=== PATIENT | male | born 1930 | race Caucasian/White ===

== ENCOUNTER → 2017-08-06 | Outpatient (CLI) | payer OTHER ==
[~2017-08-06] MED LIST: ALLOPURINOL 30300 M3 PO; ASPIRIN81 M2 PO; BISOPROLOL FUM2.5 MG PO; CIPRO250 M1 PO; DIOVAN320 MG PO; FLAGYL500 MG PO; IMDUR 60 MG TAB60 M1 PO; MEDROLDOSEPACK PO; PLAVIX 75 MG TA75 M1 PO; PRAVASTATIN SOD80 MG PO; PREDNISONE 10 M10 MG PO
== END ==
LOC: RAD 13:38
DX: M47.896 Other spondylosis, lumbar region (principal); M16.12 Unilateral primary osteoarthritis, left hip; M17.10 Unilateral primary osteoarthritis, unspecified knee

== ENCOUNTER 2019-11-07 10:56 | Emergency (ER) | payer OTHER ==
[~2019-11-07] VITALS: Ht 167.6 cm; Wt 88.5 kg
[2019-11-07] MEDS ORDERED: PLAQUENIL200 MG PO (11:11)
[2019-11-07] MEDS ORDERED: NORVASC 2.5 MG2.5 M1 PO (11:11)
[2019-11-07] MEDS ORDERED: COZAAR 25 MG TA25 M1 PO (11:11)
[2019-11-07] MEDS ORDERED: PREDNISONE 10 M10 MG PO (12:27)
[2019-11-07] MEDS ORDERED: FLEXERIL PO (12:27)
[2019-11-07 12:47] VITALS: BP 184/78
== END 2019-11-07 12:56 | disposition home or self-care (01) ==
LOC: ER 10:56
DX: M54.16 Radiculopathy, lumbar region (principal); M25.552 Pain in left hip; I10 Essential (primary) hypertension; E78.00 Pure hypercholesterolemia, unspecified; M19.90 Unspecified osteoarthritis, unspecified site; Z90.49 Acquired absence of other specified parts of digestive tract; Z98.890 Other specified postprocedural states; Z87.891 Personal history of nicotine dependence

== ENCOUNTER → 2020-01-12 | Outpatient (CLI) | payer OTHER ==
[~2020-01-12] MED LIST changes: +COZAAR 25 MG TA25 M1 PO; +FLEXERIL PO; +NORVASC 2.5 MG2.5 M1 PO; +PLAQUENIL200 MG PO
== END ==
LOC: SJCVCIMAG 09:18
DX: I25.119 Atherosclerotic heart disease of native coronary artery with unspecified angina pectoris (principal); I10 Essential (primary) hypertension; E78.5 Hyperlipidemia, unspecified; I65.23 Occlusion and stenosis of bilateral carotid arteries; M35.3 Polymyalgia rheumatica

== ENCOUNTER → 2020-07-12 | Outpatient (CLI) | payer OTHER | LOC: SJCVCIMAG 08:41 | PROVIDERS: ATTEND Internal Medicine | DX: I70.203 Unspecified atherosclerosis of native arteries of extremities, bilateral legs (principal); I65.23 Occlusion and stenosis of bilateral carotid arteries; I44.4 Left anterior fascicular block; R94.31 Abnormal electrocardiogram [ECG] [EKG]; I25.119 Atherosclerotic heart disease of native coronary artery with unspecified angina pectoris; I10 Essential (primary) hypertension; E78.5 Hyperlipidemia, unspecified; M35.3 Polymyalgia rheumatica; E78.00 Pure hypercholesterolemia, unspecified; F10.220 Alcohol dependence with intoxication, uncomplicated; Z79.899 Other long term (current) drug therapy; Z95.820 Peripheral vascular angioplasty status with implants and grafts; Z82.49 Family history of ischemic heart disease and other diseases of the circulatory system; Z87.891 Personal history of nicotine dependence ==

== ENCOUNTER → 2021-01-15 | Outpatient (CLI) | payer OTHER | LOC: SJCVCIMAG 08:15 | PROVIDERS: ATTEND Nuclear Medicine Nuclear Cardiology | DX: I70.203 Unspecified atherosclerosis of native arteries of extremities, bilateral legs (principal); R94.31 Abnormal electrocardiogram [ECG] [EKG]; I44.4 Left anterior fascicular block; I25.119 Atherosclerotic heart disease of native coronary artery with unspecified angina pectoris; I10 Essential (primary) hypertension; E78.5 Hyperlipidemia, unspecified; I65.23 Occlusion and stenosis of bilateral carotid arteries; M35.3 Polymyalgia rheumatica; E78.00 Pure hypercholesterolemia, unspecified; Z95.828 Presence of other vascular implants and grafts; Z90.49 Acquired absence of other specified parts of digestive tract; Z98.890 Other specified postprocedural states; Z79.899 Other long term (current) drug therapy; Z87.891 Personal history of nicotine dependence ==

== ENCOUNTER 2021-05-22 12:18 | Emergency (ER) | payer OTHER ==
[~2021-05-22] VITALS: Ht 170.2 cm; Wt 90.7 kg
--- NOTE | ~2021-05-22 | EMS ---
[address] [address] EMS Patient Care Report Name: GENESIS HO Room #: REG KEISHA Dalton#: [id number] Admission: 05/22/21 Attend Phys: Discharge: Date of : 34 Report #: [id number] THIS REPORT FOR: //name// Report Transmitted: 05/22/2021 14:01 EMS Care Summary [facility] MED-ACT Incident [id number] @ 05/22/2021 11:35 Incident Location [address] [place] [address] Patient GENESIS HO Male, 89 Years 1930 Patient Address [address] [place] [address] Patient History Dementia,Hypertension (HTN),Cardiac - Stent,Gout, Patient Allergies No known allergies, Patient Medications Allopurinol, Amlodipine, Losartan, Plavix, Atenolol, Donepezil, Chief Complaint weakness Disposition Transported No Lights/[place] Reason Chest Pain (Non-Traumatic) Transported To [facility] Narrative Genesis reports feeling abnormal all morning. He struggles to expand on that but does agree that he is weak. He had a brief episode of an odd feeling in his chest that he could not describe. He denies any sensation to his chest at this time. He denies SOB, sweating, nausea, diarrhea, fever, cough, or urine [address] [address] EMS Patient Care Report Name: GENESIS HO Room #: REG [facility]#: [id number] Admission: 05/22/21 Attend Phys: Discharge: Date of : 34 Report #: [id number] changes. He has not felt any palpitations and has never been told that he had an irregular heart rhythm. Upon our arrival he is sitting in a chair, happy and in NAD. He stood and walked to the cot in front of the home without help or change. He was comfortable en-route. Sheet pull to ED bed with report to RN. Initial Vitals @11:51P: 43,BP: 222/102,SpO2: 98, @11:50P: 67,SpO2: 97,KS Suspected: false @11:49P: 48,SpO2: 98, @12:12P: 52,SpO2: 95, @12:11P: 46,SpO2: 96, @11:55P: 43,SpO2: 97, @11:57P: 49,SpO2: 97, @11:58P: 47, @12:12P: 43,SpO2: 97, @11:48P: 57,R: 18,BP: 220/87,Pain: 0/10,GCS: 15,SpO2: 97,Revised Trauma: 12, @11:54P: 60,R: 18,Pain: 0/10,GCS: 15,Temp: 97.3F,Glucose: 93, Assessments @11:45MENTAL:Person Oriented,Time Oriented,Place Oriented,Event Oriented,SKIN:HEENT:LUNG SOUNDS:ABDOMEN:PELVIS//GI:EXTREMITIES:Left Leg: Edema,Right Leg: Edema,PULSE:NEURO: Impression Cardiac arrhythmia/dysrhythmia Procedures @PTAAspirin - 324 Milligrams (mg) - OralResponse: Unchanged@11:50Surgical Mask on PatientResponse: Unchanged@12:04Saline Lock 10cc (18 ga) Site: Radial-LeftResponse: UnchangedSucceeded@11:5012-Lead ECG@12:1212-Lead ECG@11:5812-Lead ECG 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,Aspirin - 324 Milligrams (mg) - Oral,Response: Unchanged 11:32,Call Received 11:32,Psap Call 11:35,Dispatched 11:35,En Route 11:41,On Scene 11:43,At Patient 11:48,BP: 220/87 M,PULSE: 57,RR: 18 R,SPO2: 97 Ox,ETCO2: ,BG: ,PAIN: 0,GCS: 15, 11:49,BP: / M,PULSE: 48,RR: R,SPO2: 98 Ox,ETCO2: ,BG: ,PAIN: ,GCS: , 11:50,Surgical Mask on Patient,Response: Unchanged 11:50,12-Lead ECG, 11:50,BP: / M,PULSE: 67,RR: R,SPO2: 97 Ox,ETCO2: ,BG: ,PAIN: ,GCS: , [facility] [address] [place] [address] EMS Patient Care Report Name: HOGENESIS Ness Room #: MARYAM Dalton#: [id number] Admission: 05/22/21 Attend Phys: Discharge: Date of : 34 Report #: [id number] 11:51,BP: 222/102 M,PULSE: 43,RR: R,SPO2: 98 Ox,ETCO2: ,BG: ,PAIN: ,GCS: , 11:54,BP: / M,PULSE: 60,RR: 18 R,SPO2: Ox,ETCO2: ,B,PAIN: 0,GCS: 15, 11:55,BP: / M,PULSE: 43,RR: R,SPO2: 97 Ox,ETCO2: ,BG: ,PAIN: ,GCS: , 11:57,BP: / M,PULSE: 49,RR: R,SPO2: 97 Ox,ETCO2: ,BG: ,PAIN: ,GCS: , 11:58,12-Lead ECG, 11:58,BP: / M,PULSE: 47,RR: R,SPO2: Ox,ETCO2: ,BG: ,PAIN: ,GCS: , 11:58,Depart Scene 12:04,Saline Lock 10cc 18 ga Site: Radial-Left,Response: UnchangedSucceeded, 12:11,BP: / M,PULSE: 46,RR: R,SPO2: 96 Ox,ETCO2: ,BG: ,PAIN: ,GCS: , 12:12,12-Lead ECG, 12:12,BP: / M,PULSE: 52,RR: R,SPO2: 95 Ox,ETCO2: ,BG: ,PAIN: ,GCS: , 12:12,BP: / M,PULSE: 43,RR: R,SPO2: 97 Ox,ETCO2: ,BG: ,PAIN: ,GCS: , 12:26,At Destination 12:40,Call Closed Disclaimer v1.1 Copyright 2020 [employer] This EMS Care Summary contains data elements from the applicable legal record (which may be displayed differently). It is designed to provide pertinent information for the following purposes: continuity of care, clinical quality, and state data reporting. The complete legal record is available to ED staff and administrators of the receiving hospital in [employer] Patient Tracker. All data is provided "as is."
[2021-05-22 12:49] LABS: ABSOLUTE NEUTROPHILS 3.6 thou/uL (1.4-8.2); BASOPHILS 0.8 % (0.0-2.0); EOSINOPHILS 3.1 % (0.0-3.0); HEMATOCRIT 43.5 % (42.0-52.0); HEMOGLOBIN 14.6 gm/dL (14.0-18.0); LYMPHOCYTES 27.6 % (24.0-44.0); MCH 32.8 pg (26.0-34.0); MCHC 33.6 g/dL (28.0-37.0); MCV 97.5 fL (80.0-100.0); MONOCYTES 9.8 % (1.0-8.0); PLATELET COUNT 211 thou/uL (150-400); POLYS 58.7 % (36.0-66.0); RBC 4.46 mil/uL (4.50-6.00); RDW 14.9 % (10.5-14.5); WBC 6.1 thou/uL (4.0-11.0)
[2021-05-22 13:00] LABS: ANION GAP 8 mmol/L (7-16); BUN 19 mg/dL (7-18); CALCIUM 9.2 mg/dL (8.5-10.1); CHLORIDE 107 mmol/L (98-107); CO2 26 mmol/L (21-32); CREATININE 1.2 mg/dL (0.7-1.3); GLUCOSE 102 mg/dL (74-106); SODIUM 141 mmol/L (136-145)
[2021-05-22 13:02] LABS: URINE BILIRUBIN NEGATIVE (Negative); URINE BLOOD TRACE (Negative); URINE CLARITY CLEAR; URINE COLOR YELLOW; URINE GLUCOSE-RANDOM* NEGATIVE (Negative); URINE KETONES NEGATIVE (Negative); URINE LEUKOCYTES-REFLEX NEGATIVE (Negative); URINE NITRITE-REFLEX NEGATIVE (Negative); URINE PROTEIN (DIPSTICK) 1+ (Negative); URINE UROBILINOGEN 0.2 E.U./dl (0.2-1.0)
[2021-05-22 13:04] LABS: APTT 23.9 Seconds (24.5-32.8); INR 0.96; PROTIME 10.5 Seconds (10.5-12.1)
[2021-05-22] MEDS ORDERED: ARICEPT10 M1 PO (13:06)
[2021-05-22 13:07] VITALS: BP 172/61
[2021-05-22 13:09] LABS: TROPONIN-I <0.06 ng/mL (<0.06)
[2021-05-22 13:28] LABS: SQUAMOUS None Seen /LPF (0-3); URINE WBC-REFLEX 0-5 Rare /HPF (0-5)
[2021-05-22 13:29] LABS: BACTERIA-REFLEX None Seen /HPF (None Seen); CASTS None Seen /LPF (None Seen); CRYSTALS None Seen /LPF (None Seen); URINE RBC None Seen /HPF (NONE SEEN)
--- NOTE | 2021-05-23 08:23 | EKG ---
[place] [address] [place] [address] ELECTROCARDIOGRAM REPORT Name: GENESIS HO Room #: DEP Sha#: [id number] Admission: 05/22/21 Attend Phys: Discharge: 05/22/21 Date of : 34 Report #: [id number] [facility] ED Test Date: 2021-05-22 Test Time: 12:24:22 Pat Name: GENESIS HO Department: Room: Gender: M Doctor Of Optometry: Eduin CORTES : 1930 Requested By: Wes Cantu Order Number: [id number] MD: Hemanth Mendoza Measurements Intervals [place] Rate: 53 P: 0 WV: 450 QRS: -42 QRSD: 106 T: 62 QT: 460 QTc: 432 Interpretive Statements Sinus rhythm Long R-R with ventricular escape Prolonged WV interval Left anterior fascicular block Abnormal R-wave progression, late transition Compared to ECG 11/12/2016 06:55:23 Ventricular escape complex(es) now present Left anterior fascicular block now present ST (T wave) deviation now present T-wave abnormality no longer present Electronically Signed On 05-23-2021 7:02:15 CDT by Hemanth Mendoza [email or web address] <ELECTRONICALLY SIGNED> By: Hemanth Mendoza MD, FAC 05/23/21 0702 1224 1224 Hemanth Mendoaz MD, [facility] /EPI
== END 2021-05-22 15:10 | disposition home or self-care (01) ==
LOC: ER 12:18
PROVIDERS: Nurse Practitioner
DX: R53.83 Other fatigue (principal); Z90.49 Acquired absence of other specified parts of digestive tract; Z98.890 Other specified postprocedural states; Z72.89 Other problems related to lifestyle; Z87.891 Personal history of nicotine dependence; Z86.79 Personal history of other diseases of the circulatory system; I10 Essential (primary) hypertension

== ENCOUNTER → 2021-08-09 | Outpatient (CLI) | payer OTHER ==
[~2021-08-09] MED LIST changes: +ARICEPT10 M1 PO
== END ==
LOC: SJCVCIMAG 07-23 08:23
PROVIDERS: ATTEND Internal Medicine
DX: I65.23 Occlusion and stenosis of bilateral carotid arteries (principal); I70.203 Unspecified atherosclerosis of native arteries of extremities, bilateral legs; I49.1 Atrial premature depolarization; I49.3 Ventricular premature depolarization; I44.0 Atrioventricular block, first degree; I48.0 Paroxysmal atrial fibrillation; R06.00 Dyspnea, unspecified; I25.10 Atherosclerotic heart disease of native coronary artery without angina pectoris; E78.5 Hyperlipidemia, unspecified; I10 Essential (primary) hypertension; Z87.891 Personal history of nicotine dependence; Z79.82 Long term (current) use of aspirin; Z79.899 Other long term (current) drug therapy

== ENCOUNTER → 2021-08-14 | Outpatient (CLI) | payer OTHER | LOC: SJCVC 10:01 | PROVIDERS: ATTEND Internal Medicine | DX: I44.0 Atrioventricular block, first degree (principal); R00.1 Bradycardia, unspecified; I25.119 Atherosclerotic heart disease of native coronary artery with unspecified angina pectoris; I10 Essential (primary) hypertension; E78.5 Hyperlipidemia, unspecified; I65.23 Occlusion and stenosis of bilateral carotid arteries; M35.3 Polymyalgia rheumatica; I73.9 Peripheral vascular disease, unspecified; E78.00 Pure hypercholesterolemia, unspecified; Z79.899 Other long term (current) drug therapy; Z87.891 Personal history of nicotine dependence; Z72.89 Other problems related to lifestyle ==